=== PATIENT | female | born 2005 | race Two or more races ===

== ENCOUNTER 2024-12-08 13:55 | Emergency (ER) | payer MEDICAID, SELFPAY ==
[2024-12-08 14:01] VITALS: BP 92/57; PULSE 82; RESP 18; TEMP 36.8; O2SAT 94; O2SAT 97; BMI 17.9
--- NOTE | 2024-12-08 14:26 | EKG_ITS ---
[facility] Test Date: 2024-12-08 Pat Name: JESSIE ERAZO Department: Room: - Gender: Female Tankman: : 2005 Requested By: Guillermo Singh Order Number: [id number] Reading MD: Guillermo Singh Measurements Intervals [place] Rate: 79 P: 51 [place]: 149 QRS: 42 QRSD: 84 T: 5 QT: 380 QTc: 436 Interpretive Statements SINUS RHYTHM WITH SINUS ARRHYTHMIA No previous ECG available for comparison /store/S0/[id number]/ecg/[id number].pdf
--- NOTE | 2024-12-08 14:30 | XR_ITS ---
Examination: PA lateral chest 2 views TECHNIQUE: Upright PA lateral chest 2 views Exam date 9: December 08, 2024 1650 hours INDICATIONS: Injury to the lateral ribs today FINDINGS: Normal heart size No pneumothorax Clavicles ribs thoracic vertebral bodies appear intact IMPRESSION: No pneumothorax pulmonary contusion or hemothorax
--- NOTE | 2024-12-08 14:32 | PD.EDSYNC ---
ED Syncope RME/HPI General Chief Complaint: Syncope / Near Syncope Stated Complaint: HIT RIBS WITH BROOM THEN SYNCOPE EPISODE Time Seen by Provider: 12/08/24 14:13 Arrival date/time: 12/08/24 13:55 RME / HPI RME / HPI narrative: The patient is a 19-year-old female with significant past medical history of anxiety disorder presented to ED via EMS with chief complaint of syncope. The patient was improving her house, when she hit her left lower ribs with the broom. She reported that she had an injury to the same site about 2 years ago, and she never seeked any medical attention for that. She started feeling dizzy, and her caught her before she would pass out. She did not had any urinary or bowel incontinence during or after episodes, neither she had any tongue bite or abnormal body movements. She remembers a lot of people around her when she woke up. She reported that when she was previously getting blood draw, she had passed out. She has a sister who is a therapist, provides her counseling regarding anxiety disorder. She denied headache, SOB, abdominal pain, any changes in bowel or bladder habit, fever or chills, nausea or vomiting. Of note, she reported she has a baby of about 1 year, and she is breast-feeding her, and has not been eating or drinking properly for past couple of weeks. Related Data Allergies Allergy/AdvReac Type Severity Reaction Status Date / Time NKA* Allergy Uncoded 06/08/11 10:23 Review of Systems Review of Systems Systems Reviewed: All systems reviewed, normal except as documented ED Exam Narrative Physical exam: General: Young, cooperative lady, no acute distress, Alert and Oriented x 3 HEENT: Moist mucous membranes, oropharynx clear Neck: Supple, No masses, No JVD CVS: S1S2 Regular rate and rhythm, No murmurs, rubs or gallops Lungs: Clear to auscultation with no accessory use, no wheeze no rhonchi Chest: severe tenderness over left lower ribs Abd: Soft, NT/ND, +BS, no organomegaly Ext: No edema, warm and well perfused Skin: No rash Psych: Appropriate mood and affect Course Quality Measures none Orders Category Date Time Status Hydro Plant Site Manager STAT Care 12/08/24 14:22 Active EKG (ED ONLY) *Do not use* NOW Care 12/08/24 14:26 Completed Insert IV STAT Care 12/08/24 14:22 Active Orthostatic Vitals STAT Care 12/08/24 14:22 Active EKG (ED Only) Stat Exams 12/08/24 14:26 Draft XR abdomen 1V Stat Exams 12/08/24 17:35 Completed XR chest 2V Stat Exams 12/08/24 14:30 Taken CBC Stat Lab 12/08/24 15:35 Completed Comprehensive Metabolic Panel Stat Lab 12/08/24 15:35 Completed HCG Qualitative,Urine Stat Lab 12/08/24 15:40 Completed HCG,Qualitative Serum Stat Lab 12/08/24 15:35 Completed Magnesium Stat Lab 12/08/24 15:35 Completed Partial Thromboplastin Time Stat Lab 12/08/24 15:35 Completed Phosphorous Stat Lab 12/08/24 15:35 Completed Prothrombin Time with INR Stat Lab 12/08/24 15:35 Completed Troponin I Stat Lab 12/08/24 15:35 Completed Urinalysis Stat Lab 12/08/24 15:40 Completed Ketorolac Inj [Toradol Inj] Med 12/08/24 14:25 Discontinued 15 mg IVP X1 ONE Ketorolac Inj [Toradol Inj] Med 12/08/24 14:21 Discontinued 30 mg IVP X1 ONE Sodium Chloride 0.9% 500 ml [Ns] 500 ml Med 12/08/24 14:21 Discontinued IV 999 mls/hr Vital Signs Vital signs: Vital Signs Temperature 98.2 F 12/08/24 14:01 Pulse Rate 82 12/08/24 14:01 Respiratory Rate 18 12/08/24 14:01 Blood Pressure 92/57 L 12/08/24 14:01 Pulse Oximetry (%) 97 12/08/24 14:01 Oxygen Delivery Method Room Air 12/08/24 14:01 Syncope MDM Narrative MDM Narrative:: The patient is a 19-year-old female with significant past medical history of anxiety disorder presented to ED via EMS with chief complaint of syncope. The patient was improving her house, when she hit her left lower ribs with the broom. She reported that she had an injury to the same site about 2 years ago, and she never seeked any medical attention for that. She started feeling dizzy, and her caught her before she would pass out. She did not had any urinary or bowel incontinence during or after episodes, neither she had any tongue bite or abnormal body movements. She remembers a lot of people around her when she woke up. She reported that when she was previously getting blood draw, she had passed out. She has a sister who is a therapist, provides her counseling regarding anxiety disorder. She denied headache, SOB, abdominal pain, any changes in bowel or bladder habit, fever or chills, nausea or vomiting. Of note, she reported she has a baby of about 1 year, and she is breast-feeding her, and has not been eating or drinking properly for past couple of weeks. Initial vitals were BP 92/57, 82, RR 18, temperature 98.2, saturating 97% on room air. Orthostatic vitals were negative, but was taken after bolus of 500 cc IV normal saline. Labs revealed stable CBC, 13.4, chemistry panel with electrolytes stable, troponin less than 0.002, UA revealed 2+ urine ketones, EKG revealed sinus rhythm with sinus arrhythmia, chest x-ray and abdomen x ray revealed no cervical or thoracic ribs fracture, or hematoma, pulmonary contusion or pneumothorax. Patient data External records reviewed:: None Clinical information provided by:: patient Social determinants that could affect healthcare access:: none Patient has the following chronic illnesses:: See above How is presenting disease/condition affected by chronic disease/condition?: exacerbated by Evaluation data The following diagnostics were reviewed and interpreted by me:: lab results, radiology exam(s) and EKG tracing(s) Lab and/or radiology exams considered but not ordered:: None Interpretation Summary: See above Medications / Prescriptions Medications or Prescriptions considered but not ordered:: None Medication administrations:: Medication Administration History Discontinued Medications Sodium Chloride (Ns) 500 mls @ 999 mls/hr IV .Q31M ONE Stop: 12/08/24 14:51 Last Infusion: 12/08/24 15:24 Dose: Infused Documented By: Admin: 12/08/24 14:53 Dose: 999 mls/hr Documented By: EF Ketorolac Tromethamine (Ketorolac Inj 30 Mg/Ml Vial) 30 mg IVP X1 ONE Stop: 12/08/24 14:22 Last Admin: 12/08/24 15:01 Dose: Not Given Documented By: EF Non-Admin Reason: Cancelled by Provider Ketorolac Tromethamine (Ketorolac Inj 30 Mg/Ml Vial) 15 mg IVP X1 ONE Stop: 12/08/24 14:26 Last Admin: 12/08/24 14:54 Dose: 15 mg Documented By: EF See above Consultations Consultation(s) initiated? (list below): No Diagnosis Syncope Differential Diagnosis: syncope due to orthostatic hypotension, vasovagal syncope and dehydration Most likely diagnosis given after review of the tests above:: Syncope due to orthostatic hypotension 2/2 dehydration Admission Indicated Admission indicated?: not indicated Explain why admission is indicated or not indicated:: Vitals and labs including ekg stable and pain controlled. Admission Request Was there a request for admission?: No Disposition Plan Disposition Plan: Discharge Discharge Attestation Discharge Attestation: The patient and all family members were given an opportunity to ask questions and understood the discharge instructions. Discharge instructions specifically effects, indications for sooner follow up or return to the emergency department, and the expected course of current diagnosis. Patient condition: Stable Discharge Plan Plan Patient Disposition: HOME (Self Care) Prescriptions/Referrals Referrals: No Primary/Family,Physician [Primary Care Provider] - In 1 week Problem List Clinical Impression: Syncope due to orthostatic hypotension, Dehydration, Soft tissue injury of chest wall Patient/Caregiver Discharge Instructions Discharge Activity: activity as tolerated Education Materials: Dehydration, Orthostatic Hypotension Additional Instructions: You have been discharged by Dr. Singh with the following recommendations: lease follow-up with your PCP within 1 week of discharge You have been started on: -Ibuprofen 200 Mg up to 3 times a day as needed for pain, please take this medicine after food. -Recommended to increase caloric intake, and stick to morning breakfast, lunch, snacks and dinner, including adequate fluid intake. Continue taking all other medicines as prescribed -Recommended to return back to emergency department if your symptoms persists or worsens Print Language: Persian Stand Alone Forms: Jenna Award Info., Patient Portal Info Letter
[2024-12-08 14:43] VITALS: PULSE 77
[2024-12-08] MEDS: SODIUM CHLORIDE 0.9% 500 ML 500 ML 999 ML IV (14:53)
[2024-12-08] MEDS: KETOROLAC INJ 30 MG/ML VIAL 15 MG IVP (14:54)
[2024-12-08 15:44] VITALS: BP 83/50; BP 91/71; BP 95/43; PULSE 66; PULSE 70; PULSE 80
[2024-12-08 15:50] LABS: Collection Type, Urine Clean Catch
[2024-12-08 16:06] LABS: Basophils # (Auto) 0.1 Thou/mm3 (0.0-0.2); Basophils % (Auto) 1 % (0-2.5); Eosinophils % (Auto) 0 % (0-10); HCG,Qualitative Serum Negative; Hematocrit 36.4 % (36.0-46.0); Hemoglobin 12.5 g/dL (12.0-16.0); Immature Granulocytes % (Auto) 0 % (0-0); Immature Granulocytes Auto 0.02 Thou/mm3 (0.00-0.00); Lymphocytes # (Auto) 1.9 Thou/mm3 (1.0-4.8); Lymphocytes % (Auto) 26 % (10-50); Mean Corpuscular HGB Conc 34.3 g/dl (31.0-37.0); Mean Corpuscular Hemoglobin 28.6 pg (25.0-35.0); Mean Corpuscular Volume 83 fL (80-100); Monocytes # (Auto) 0.5 Thou/mm3 (0.0-0.8); Monocytes % (Auto) 7 % (0-12); Neutrophils % (Auto) 67 % (37-80); Nucleated Red Blood Cell % 0 /100 WBC (0); Platelet Count 239 Thou/mm3 (140-440); RDW Standard Deviation 41.8 fL (36.4-46.3); Red Blood Count 4.37 Miln/mm3 (4.00-5.20); White Blood Count 7.6 Thou/mm3 (4.5-11.0)
[2024-12-08 16:10] LABS: INR 1.2 (0.9-1.3); Partial Thromboplastin Time 27.1 Seconds (22.0-36.0); Prothrombin Time 13.4 Seconds (9.0-12.2)
[2024-12-08 16:13] LABS: Alanine Aminotransferase 14 U/L (10-49); Albumin, Serum 4.4 gm/dL (3.5-5.0); Albumin/Globulin Ratio 1.5 (1.2-2.2); Alkaline Phosphatase 55 U/L (46-116); Anion Gap 12 (7-16); Aspartate Amino Transferase 35 U/L (0-34); BUN/Creatinine Ratio 12 Ratio (12-20); Bilirubin,Total 0.7 mg/dL (0.3-1.2); Blood Urea Nitrogen 7 mg/dL (9-23); Calcium 8.8 mg/dL (8.3-10.6); Calcium (Corrected) 8.8 mg/dL (8.5-10.1); Carbon Dioxide 24.3 mMol/L (20.0-31.0); Chloride 106 mMol/L (98-107); Creatinine (Component) 0.6 mg/dL (0.6-1.3); Globulin 2.9 gm/dL (2.3-3.5); Glucose 76 mg/dL (74-106); Osmolality,Calculated 280 (275-295); Potassium 3.8 mMol/L (3.4-5.1); Sodium 142 mMol/L (136-145); Total Protein 7.3 gm/dL (5.7-8.2); Troponin I < 0.002 ng/mL (0.0-0.045); eGFR > 60 See Note
[2024-12-08 16:15] VITALS: BP 108/98; PULSE 61; RESP 18; TEMP 36.4; O2SAT 100
[2024-12-08 16:15] LABS: Bilirubin,Urine Negative (Negative); Blood,Urine Negative (Negative); Clarity,Urine Clear (Clear/Hazy); Color,Urine Lt-Yellow (Lt Yel-Yel); Glucose, Urine Negative (Negative); Ketones,Urine 2+ (Negative); Leukocyte Esterase,Urine Negative (Negative); Nitrite,Urine Negative (Negative); PH,Urine 6.5 (5.0-7.0); Protein,Urine Negative (Neg - Trace); RBC,Urine 2 /hpf (0-3); Specific Gravity,Urine 1.022 (1.001-1.035); Squamous Epithelial Cell,Urine 3 /hpf (0-5); WBC,Urine 2 /hpf (0-5)
[2024-12-08 16:18] LABS: HCG Qualitative,Urine Negative
--- NOTE | 2024-12-08 17:35 | XR_ITS ---
Examination: Abdomen AP single view Technique: AP portable supine abdomen, single view Exam date and time: December 08, 2024 1739 hours INDICATIONS: Onset abdominal pain today. FINDINGS: Nonobstructive bowel gas pattern. No free air. No renal or ureteral calculi Intact osseous structures IMPRESSION: Nonobstructive bowel gas pattern
[2024-12-08 18:22] VITALS: BP 108/82; PULSE 99; RESP 16; O2SAT 99
== END 2024-12-08 18:27 | disposition home or self-care (01) ==
PROVIDERS: Emergency Provider Student in an Organized Health Care Education/Training Program
DX: I95.1 Orthostatic hypotension (principal); E86.0 Dehydration; S29.9XXA Unspecified injury of thorax, initial encounter; F41.9 Anxiety disorder, unspecified; W22.8XXA Striking against or struck by other objects, initial encounter
CPT/HCPCS: 36415; 71046; 74018; 80053; 81001; 81025; 83735; 84100; 84484; 84703; 85025; 85610; 85730; 93005; 96360; 99284; J1885; J7040

== ENCOUNTER 2025-03-24 17:19 | Emergency (ER) | payer MEDICAID, SELFPAY ==
[2025-03-24 17:20] VITALS: BMI 18.1
[2025-03-24 18:19] VITALS: BP 109/69; PULSE 67; RESP 16; TEMP 36.9; O2SAT 97
--- NOTE | 2025-03-24 19:00 | XR_ITS ---
Examination: Complete OB ultrasound, less than 14 weeks, transabdominal Date and time of exam: March 24, 2025 1003 hrs. Indications: Vaginal bleeding with right lower abdominal pain today Technique: Obstetrical ultrasound images less than 14 weeks performed via transabdominal imaging Findings: Uterus 9.4 cm no uterine mass or intrauterine gestation Endometrial stripe 0.9 cm Ovaries obscured by bowel gas Impression: No uterine mass or intrauterine gestation
[2025-03-24 19:34] LABS: Basophils # (Auto) 0.1 Thou/mm3 (0.0-0.2); Basophils % (Auto) 1 % (0-2.5); Eosinophils # (Auto) 0.0 Thou/mm3 (0.0-0.5); Eosinophils % (Auto) 1 % (0-10); Hematocrit 35.5 % (36.0-46.0); Hemoglobin 12.1 g/dL (12.0-16.0); Immature Granulocytes Auto 0.02 Thou/mm3 (0.00-0.00); Lymphocytes # (Auto) 2.4 Thou/mm3 (1.0-4.8); Lymphocytes % (Auto) 38 % (10-50); Mean Corpuscular HGB Conc 34.1 g/dl (31.0-37.0); Mean Corpuscular Hemoglobin 29.5 pg (25.0-35.0); Mean Corpuscular Volume 87 fL (80-100); Monocytes # (Auto) 0.4 Thou/mm3 (0.0-0.8); Monocytes % (Auto) 6 % (0-12); Neutrophils # (Auto) 3.4 Thou/mm3 (1.8-7.7); Neutrophils % (Auto) 54 % (37-80); Nucleated Red Blood Cell # 0.00 Thou/mm3 (0.00-0.00); Nucleated Red Blood Cell % 0 /100 WBC (0); Platelet Count 280 Thou/mm3 (140-440); RDW Standard Deviation 39.9 fL (36.4-46.3); Red Blood Count 4.10 Miln/mm3 (4.00-5.20); White Blood Count 6.3 Thou/mm3 (4.5-11.0)
[2025-03-24 20:05] LABS: Collection Type, Urine Voided
[2025-03-24 20:19] LABS: Alanine Aminotransferase 11 U/L (10-49); Albumin, Serum 4.6 gm/dL (3.5-5.0); Albumin/Globulin Ratio 1.7 (1.2-2.2); Alkaline Phosphatase 55 U/L (46-116); Anion Gap 11 (7-16); Aspartate Amino Transferase 19 U/L (0-34); BUN/Creatinine Ratio 9 Ratio (12-20); Bilirubin,Total 0.6 mg/dL (0.3-1.2); Blood Urea Nitrogen 6 mg/dL (9-23); Calcium 9.6 mg/dL (8.3-10.6); Calcium (Corrected) 9.6 mg/dL (8.5-10.1); Carbon Dioxide 25.5 mMol/L (20.0-31.0); Chloride 105 mMol/L (98-107); Creatinine (Component) 0.7 mg/dL (0.6-1.3); Estimated Creatinine Clearance 90.9 mL/min (>60); Globulin 2.7 gm/dL (2.3-3.5); Glucose 76 mg/dL (74-106); Osmolality,Calculated 277 (275-295); Potassium 3.1 mMol/L (3.4-5.1); Sodium 141 mMol/L (136-145); Total Protein 7.3 gm/dL (5.7-8.2); eGFR > 60 See Note
[2025-03-24 20:27] LABS: Beta HCG,Quantitative 2920 mIU/mL (<5.0)
[2025-03-24 20:35] LABS: Amorphous Crystals,Urine Present (Absent); Bilirubin,Urine Negative (Negative); Blood,Urine Negative (Negative); Clarity,Urine Turbid (Clear/Hazy); Color,Urine Yellow (Lt Yel-Yel); Glucose, Urine Negative (Negative); Ketones,Urine Negative (Negative); Leukocyte Esterase,Urine Positive (Negative); Nitrite,Urine Negative (Negative); PH,Urine 6.0 (5.0-7.0); Protein,Urine Trace (Neg - Trace); RBC,Urine < 1 /hpf (0-3); Specific Gravity,Urine 1.027 (1.001-1.035); Squamous Epithelial Cell,Urine 4 /hpf (0-5); Urobilinogen,Urine Negative mg/dL (0.0-1.0); WBC,Urine 3 /hpf (0-5)
--- NOTE | 2025-03-25 00:19 | PD.EDVAGBL ---
ED OB Contraction Preg RMI/HPI General Chief complaint: Urogenital-Female Stated complaint: SPOTTING TODAY, + PREG Time Seen by Provider: 03/24/25 18:43 Arrival date/time: 03/24/25 17:19 This is a case of 19-year-old female who came in in the emergency room due to vaginal spotting today patient stated that she is 8 weeks she went to the checkup and was confirm that she is no blood test no ultrasound done yet patient is 2 para 1 have OB appointment on April 04, 2025 patient is fine until today noted to have vaginal spotting but resolved prior to arrival in the emergency room with mild pelvic cramping no other symptoms noted Limitations: no limitations Related Data Previous Rx's ?Medication ?Instructions ?Recorded ibuprofen 200 mg tablet 200 mg PO Q8H PRN pain #10 tabs 12/08/24 ondansetron HCl 4 mg tablet 4 mg PO Q8H PRN nausea and 12/08/24 vomiting #14 tabs nitrofurantoin 100 mg PO BID #20 caps 03/25/25 monohydrate/macrocrystals 100 mg capsule (Macrobid) Allergies Allergy/AdvReac Type Severity Reaction Status Date / Time latex Allergy Severe Hives Verified 03/24/25 17:23 Review of Systems Review of Systems Systems Reviewed: All systems reviewed, normal except as documented Constitutional Constitutional: Reports system reviewed and no additional complaints, except as documented and Reports as per HPI Cardiovascular Cardiovascular: Reports system reviewed and no additional complaints, except as documented and Reports as per HPI Respiratory Respiratory: Reports system reviewed and no additional complaints, except as documented and Reports as per HPI Gastrointestinal Gastrointestinal: Reports system reviewed and no additional complaints, except as documented and Reports as per HPI Genitourinary Genitourinary: Reports system reviewed and no additional complaints, except as documented and Reports as per HPI Neurologic Neurologic: Reports system reviewed and no additional complaints, except as documented and Reports as per HPI Past Medical History Past Medical History CARDIAC: Negative Congestive Heart Failure RESPIRATORY: Negative Chronic Obstructive Pulmonary Disease (COPD) GENITOURINARY: Negative Renal Disease ENDOCRINE: Negative Diabetes Mellitus Type 1 or Diabetes Mellitus Type 2 Social History SMOKING STATUS: Never smoker ED Exam General Limitations: Present no limitations General appearance: Present alert, in no apparent distress and other (Patient is awake alert oriented not in distress nontoxic looking well-hydrated well-nourished) Head Head exam: Present atraumatic, normocephalic and normal inspection Eye Eye exam: Present normal appearance, PERRL and EOMI ENT ENT exam: Present normal exam, normal oropharynx and mucous membranes moist Neck Neck exam: Present normal inspection, full ROM and trachea midline; Absent tenderness, meningismus, lymphadenopathy or thyromegaly Chest Chest inspection: Present normal inspection and symmetric chest wall rise; Absent tenderness Respiratory Respiratory exam: Present normal lung sounds bilaterally; Absent respiratory distress, wheezes, stridor, accessory muscle use or prolonged expiratory phase Cardiovascular Cardiovascular exam: Present regular rate, normal rhythm and normal heart sounds; Absent bradycardia, tachycardia, irregular rhythm, systolic murmur or diastolic murmur Abdominal Exam Abdominal exam: Present soft, normal bowel sounds and other (Gravid uterus); Absent distention, tenderness, guarding, rebound, rigidity, diminished bowel sounds, hyperactive bowel sounds, hypoactive bowel sounds, organomegaly, psoas sign, obturator sign, Grossman's sign, Rovsing's sign or tenderness at McBurney's Point Extremities Exam Extremities exam: Present normal inspection and full ROM Back Exam Back exam: Present normal inspection and full ROM Neurological Exam Neurological exam: Present alert, oriented X3, CN II-XII intact, normal gait and reflexes normal; Absent motor sensory deficit Psychiatric Psychiatric exam: Present normal affect and normal mood Skin Skin exam: Present warm, dry, intact and normal color Course Quality Measures none Orders Category Date Time Status US OB <= 14 weeks fetus Stat Exams 03/24/25 19:00 Completed ABO/RH Type Stat Lab 03/24/25 19:22 Completed Beta HCG,Quantitative Stat Lab 03/24/25 19:22 Completed CBC Stat Lab 03/24/25 19:22 Completed CMP [Comprehensive Metabolic Panel] Stat Lab 03/24/25 19:22 Completed Urinalysis Stat Lab 03/24/25 19:33 Completed Potassium Chloride [K-Dur] Med 03/24/25 22:39 Discontinued 40 meq PO X1 ONE Vital Signs Vital signs: Vital Signs Temperature 98.5 F 03/24/25 18:19 Pulse Rate 67 03/24/25 18:19 Respiratory Rate 16 03/24/25 18:19 Blood Pressure 109/69 03/24/25 18:19 Pulse Oximetry (%) 97 03/24/25 18:19 Oxygen Delivery Method Room Air 03/24/25 18:19 Oxygen saturation is 97% in room air Vaginal Bleeding MDM Narrative MDM Narrative: This is a case of 19-year-old female who came in in the emergency room due to vaginal spotting today patient stated that she is 8 weeks she went to the checkup and was confirm that she is no blood test no ultrasound done yet patient is 2 para 1 have OB appointment on April 04, 2025 patient is fine until today noted to have vaginal spotting but resolved prior to arrival in the emergency room with mild pelvic cramping no other symptoms noted physical examination patient is awake alert oriented not in distress nontoxic looking well-hydrated well-nourished no signs and symptoms of acute abdomen sepsis or dehydration abdominal exam is benign nonsurgical no guarding no rebound no rigidity no tenderness on the bladder negative psoas negative straight or negative Rovsing's negative McBurney's negative Grossman sign negative CVA tenderness gravid uterus the rest of the physical examination and neurological exam is normal and unremarkable blood test showed no leukocytosis no anemia patient is hypokalemic with potassium of 3.1 thus K-Dur was given 40 mEq x 1 patient will follow-up with PCP to monitor potassium level as outpatient liver and kidney function is normal patient is B+ patient beta-hCG [id number] patient urinalysis showed positive WBC in urine suggestive of urinary tract infection patient pelvic ultrasound showed no intrauterine at this point there is no baseline for patient beta-hCG thus I cannot totally rule out spontaneous incomplete ectopic or early she was advised to follow-up in 2 days for reevaluation for repeat beta-hCG and pelvic ultrasound the importance to see an OB e learning coordinator in 2 days for reevaluation and repeat test was also discussed patient will continue to take multivitamins and hydration patient was prescribed with Macrobid for urinary tract infection patient understood very well the discharge instruction for any worsening symptoms return precaution in the ER was advised Patient was discharged with comfortable condition walking with stable gait. Patient verbalized no further complains explained diagnosis and answered patient question. Patient is comfortable with the proposed management plan including the need to follow up with his/her primary care physician and any specialist if applicable Discussed patient for any urgent condition or worsening sx, He/She needed to go to emergency room immediately or call 911. Patient acknowledge the responsibility to follow up as instructed and to monitor her/his symptoms. For any persistence of the symptoms for more than 3-5 days return precaution advised. Discussed the result of the test and was given printed discharge instruction Patient data External records reviewed:: [facility] previous records Clinical information provided by:: patient Social determinants that could affect healthcare access:: none Patient has the following chronic illnesses:: None How is presenting disease/condition affected by chronic disease/condition?: no chronic disease Evaluation data The following diagnostics were reviewed and interpreted by me:: lab results and radiology exam(s) Lab and/or radiology exams considered but not ordered:: Reviewed Interpretation Summary: Reviewed Medications / Prescriptions Medications or Prescriptions considered but not ordered:: Given Medication administrations:: Medication Administration History Discontinued Medications Potassium Chloride (Potassium Chloride 20 Meq Tabcr) 40 meq PO X1 ONE Stop: 03/24/25 22:40 Last Admin: 03/24/25 23:21 Dose: 40 meq Documented By: CVL Given Consultations Consultation(s) initiated? (list below): No Diagnosis Vaginal Bleeding Differential Diagnosis: missed , threatened , dysfunctional uterine bleeding, incomplete , ectopic without intrauterine and vaginal bleeding Most likely diagnosis given after review of the tests above:: Abnormal vaginal bleeding possible Admission Indicated Admission indicated?: not indicated Explain why admission is indicated or not indicated:: Not indicated Admission Request Was there a request for admission?: No Admission Attestation Admission request attestation: Not indicated Disposition Plan Disposition Plan: Discharge Discharge Attestation Discharge Attestation: The patient and all family members were given an opportunity to ask questions and understood the discharge instructions. Discharge instructions specifically effects, indications for sooner follow up or return to the emergency department, and the expected course of current diagnosis. Patient condition: Stable Discharge Plan Plan Patient Disposition: HOME (Self Care) Patient condition on transfer: Stable Prescriptions/Referrals Prescriptions/Med Rec: New nitrofurantoin monohyd/m-cryst [Macrobid] 100 mg capsule 100 mg PO BID Qty: 20 0RF Rx Instructions: must administer with a meal/food No Action ibuprofen 200 mg tablet 200 mg PO Q8H PRN (Reason: pain) Qty: 10 0RF Rx Instructions: Please take this medicine after food. ondansetron HCl 4 mg tablet 4 mg PO Q8H PRN (Reason: nausea and vomiting) Qty: 14 0RF Referrals: Neno Ramirez MD [Primary Care Provider, Family Practice] - In 1 week Problem List Clinical Impression: Abnormal vaginal bleeding, Possible , Urinary tract infection, Hypokalemia Patient/Caregiver Discharge Instructions Education Materials: Urinary Tract Infections in Women, First Trimester, ED Dysfunctional Uterine Bleeding, ED Hypokalemia Additional Instructions: Follow-up with your primary care physician in 2 days for reevaluation and to see OB e learning coordinator for further evaluation and treatment of abnormal vaginal bleeding possible and to have repeat pelvic ultrasound and beta-hCG to confirm early versus ectopic versus incomplete versus spontaneous if not seen in 2 days return here in the emergency room for reevaluation and to have repeat pelvic ultrasound and beta-hCG Recurrence persistent worsening symptoms or any emergent concern call 911 or go to the nearest emergency room continue multivitamins keep hydrated increase water intake keep hydrated finish the course of antibiotic for your urinary tract infection It is very important to see OB e learning coordinator for your checkup Follow-up with your primary care physician to monitor your potassium level as an outpatient Print Language: Czech Stand Alone Forms: Jenna Award Info., Patient Portal Info Letter PA/[facility] Supervising Physician SEKOU/LEONEL Supervising Physician: Dr. Wise
[2025-03-25 00:24] VITALS: RESP 18
== END 2025-03-25 00:24 | disposition home or self-care (01) ==
PROVIDERS: Nurse Practitioner Family; Emergency Provider Emergency Medicine; PCP Family Medicine
DX: N93.9 Abnormal uterine and vaginal bleeding, unspecified (principal); N39.0 Urinary tract infection, site not specified; E87.6 Hypokalemia
CPT/HCPCS: 36415; 76801; 80053; 81001; 84702; 85025; 86900; 86901; 99283; A9270

== ENCOUNTER 2025-03-30 16:59 | Emergency (ER) | payer MEDICAID, SELFPAY ==
[2025-03-30 17:07] VITALS: BP 111/75; PULSE 68; RESP 19; TEMP 36.8; O2SAT 99; BMI 16.5
--- NOTE | 2025-03-30 17:47 | PD.EDRME ---
Rapid Medical Screening Exam RME Arrival date/time: 03/30/25 16:59 Chief Complaint: Vaginal Bleeding Time Seen by Provider: 03/30/25 17:43 Vital signs: Vital Signs Temperature 98.2 F 03/30/25 17:07 Pulse Rate 68 03/30/25 17:07 Respiratory Rate 19 03/30/25 17:07 Blood Pressure 111/75 03/30/25 17:07 Pulse Oximetry (%) 99 03/30/25 17:07 Oxygen Delivery Method Room Air 03/30/25 17:07 RME Narrative: 19-year-old female who came in in the emergency room due to vaginal spotting today was seen on 03/24/25 for same. Concerned was told no findings on US but hcg was 2920. States she looked up that is not normal.l [id number]. having cramping and more bleeding today
[2025-03-30 18:15] LABS: Collection Type, Urine Clean Catch
[2025-03-30 18:28] LABS: Bacteria,Urine Rare; Bilirubin,Urine Negative (Negative); Blood,Urine 2+ (Negative); Clarity,Urine Clear (Clear/Hazy); Color,Urine Yellow (Lt Yel-Yel); Glucose, Urine Negative (Negative); Ketones,Urine Negative (Negative); Leukocyte Esterase,Urine Negative (Negative); Nitrite,Urine Negative (Negative); PH,Urine 6.0 (5.0-7.0); Protein,Urine Trace (Neg - Trace); RBC,Urine 3 /hpf (0-3); Specific Gravity,Urine 1.026 (1.001-1.035); Squamous Epithelial Cell,Urine 1 /hpf (0-5); Urobilinogen,Urine Negative mg/dL (0.0-1.0); WBC,Urine 4 /hpf (0-5)
--- NOTE | 2025-03-30 18:41 | XR_ITS ---
Examination: OB Transvaginal ultrasound of the pelvis, complete Technique: Transvaginal sonographic images pelvis performed using alvares scale imaging Exam date and time: March 30, 2025 1843 hrs. Indications: Vaginal bleeding and pelvic pain beginning one week ago Findings: Uterus 6.0 cm intrauterine gestational sac 0.95 cm corresponds to 5 weeks 5 day gestational age. No pole, no cardiac activity Right ovary obscured by bowel gas Left ovary 2.6 cm arterial flow 15 mm cyst Impression: Empty intrauterine gestational sac corresponding to 5 weeks 5 day gestational age Recommend short-term follow-up transvaginal pelvic sonography to confirm viability.
[2025-03-30 19:55] LABS: Basophils # (Auto) 0.1 Thou/mm3 (0.0-0.2); Basophils % (Auto) 1 % (0-2.5); Eosinophils # (Auto) 0.1 Thou/mm3 (0.0-0.5); Eosinophils % (Auto) 1 % (0-10); Hematocrit 38.6 % (36.0-46.0); Hemoglobin 12.8 g/dL (12.0-16.0); Immature Granulocytes Auto 0.01 Thou/mm3 (0.00-0.00); Lymphocytes # (Auto) 3.0 Thou/mm3 (1.0-4.8); Lymphocytes % (Auto) 48 % (10-50); Mean Corpuscular HGB Conc 33.2 g/dl (31.0-37.0); Mean Corpuscular Hemoglobin 28.7 pg (25.0-35.0); Mean Corpuscular Volume 87 fL (80-100); Monocytes # (Auto) 0.5 Thou/mm3 (0.0-0.8); Monocytes % (Auto) 7 % (0-12); Neutrophils # (Auto) 2.7 Thou/mm3 (1.8-7.7); Neutrophils % (Auto) 43 % (37-80); Nucleated Red Blood Cell # 0.00 Thou/mm3 (0.00-0.00); Nucleated Red Blood Cell % 0 /100 WBC (0); Platelet Count 299 Thou/mm3 (140-440); RDW Standard Deviation 40.0 fL (36.4-46.3); Red Blood Count 4.46 Miln/mm3 (4.00-5.20); White Blood Count 6.2 Thou/mm3 (4.5-11.0)
[2025-03-30 20:12] LABS: Alanine Aminotransferase 12 U/L (10-49); Albumin, Serum 5.3 gm/dL (3.5-5.0); Albumin/Globulin Ratio 1.8 (1.2-2.2); Alkaline Phosphatase 60 U/L (46-116); Anion Gap 11 (7-16); Aspartate Amino Transferase 22 U/L (0-34); BUN/Creatinine Ratio 13 Ratio (12-20); Bilirubin,Total 0.8 mg/dL (0.3-1.2); Blood Urea Nitrogen 8 mg/dL (9-23); Calcium 10.3 mg/dL (8.3-10.6); Calcium (Corrected) 10.3 mg/dL (8.5-10.1); Carbon Dioxide 24.4 mMol/L (20.0-31.0); Chloride 105 mMol/L (98-107); Creatinine (Component) 0.6 mg/dL (0.6-1.3); Estimated Creatinine Clearance 103.1 mL/min (>60); Globulin 2.9 gm/dL (2.3-3.5); Glucose 88 mg/dL (74-106); Osmolality,Calculated 276 (275-295); Potassium 3.8 mMol/L (3.4-5.1); Sodium 140 mMol/L (136-145); Total Protein 8.2 gm/dL (5.7-8.2); eGFR > 60 See Note
[2025-03-30 20:35] LABS: Beta HCG,Quantitative 5487 mIU/mL (<5.0)
[2025-03-30 20:52] VITALS: BP 111/75; PULSE 72; RESP 19; TEMP 36.8; O2SAT 99
--- NOTE | 2025-03-30 21:11 | EDNOTE_ITS ---
ED OB Contraction Preg RMI/HPI General Chief complaint: Vaginal Bleeding Stated complaint: W/BLEEDING Time Seen by Provider: 03/30/25 17:43 Source: patient Arrival date/time: 03/30/25 16:59 Mode of arrival: ambulatory Limitations: no limitations RME / HPI RME / HPI Narrative: 19-year-old female who came in in the emergency room due to vaginal spotting tod luis miguel was seen on 03/24/25 for same. Concerned was told no findings on US but hcg was 2920. States she looked up that is not normal.l [id number]. having cramping and more bleeding today. Patient has having pain on the left pelvic area but the pain is only 4 a few seconds at a time and has occurred 4 times today. The patient has had 2 pads of bleeding over the last 24 hours. MD Complaint: vaginal bleeding and other (Left lower quadrant pain for few seconds at a time x 4 today.) Onset (ago): day(s) Consistency: intermittent Location: pelvis Severity: moderate Severity scale (1-10): 5 Quality: cramping Relieving factors: none Exacerbating factors: movement Associated symptoms: denies other symptoms Vaginal discharge: none Vaginal bleeding: light : yes Number of weeks : 8 OB History - Current : no complications OB History - Previous Pregnancies: no complications Last menstrual period: 02/04/25 care: none Related Data : 2 Para: 1 Ab: 0 Previous Rx's ?Medication ?Instructions ?Recorded ibuprofen 200 mg tablet 200 mg PO Q8H PRN pain #10 t abs 12/08/24 ondansetron HCl 4 mg tablet 4 mg PO Q8H PRN nausea and 12/08/24 vomiting #14 tabs nitrofurantoin 100 mg PO BID #20 caps 03/25 monohydrate/macrocrystals 100 mg capsule (Macrobid) Allergies Allergy/AdvReac Type Severity Reaction Status Date / Time latex Allergy Severe Hives Verified 03/30/25 17:03 Review of Systems Review of Systems Systems Reviewed: All systems reviewed, normal except as documented Past Medical History Past Medical History CARDIAC: Negative Congestive Heart Failure RESPIRATORY: Negative Chronic Obstructive Pulmonary Disease (COPD) GENITOURINARY: Negative Renal Disease ENDOCRINE: Negative Diabetes Mellitus Type 1 or Diabetes Mellitus Type 2 Social History SMOKING STATUS: Never smoker ED Exam General Limitations: Present no limitations General appearance: Present alert and in no apparent distress Head Head exam: Present atraumatic Eye Eye exam: Present normal appearance, PERRL and EOMI ENT ENT exam: Present normal exam, normal oropharynx and mucous membranes moist Neck Neck exam: Present normal inspection, full ROM and trachea midline Chest Chest inspection: Present normal inspection and symmetric chest wall rise Respiratory Respiratory exam: Present normal lung sounds bilaterally Cardiovascular Cardiovascular exam: Present regular rate, normal rhythm and normal heart sounds Abdominal Exam Abdominal exam: Present soft and normal bowel sounds Speculum exam: Present vaginal bleeding Bimanual exam: Present normal bimanual exam Extremities Exam Extremities exam: Present normal inspection and full ROM Back Exam Back exam: Present normal inspection and full ROM Neurological Exam Neurological exam: Present alert, oriented X3 and CN II-XII intact Psychiatric Psychiatric exam: Present normal affect and normal mood Skin Skin exam: Present warm, dry, intact and normal color Course Course Course Narrative: Patient is a 19-year-old female G2, P1 here for reevaluation last seen on 03/24/2025. Quality Measures none Orders Category Date Time Status US OB transvaginal Stat Exams 03/30/25 18:41 Completed ABO/RH Type - Stat Lab 03/30/25 19:30 Completed Beta HCG,Quantitative Stat Lab 03/30/25 19:30 Completed CBC Stat Lab 03/30/25 19:30 Completed CMP [Comprehensive Metabolic Panel] Stat Lab 03/30/25 19:30 Completed UA [Urinalysis] Stat Lab 03/30/25 18:00 Completed Vital Signs Vital signs: Vital Signs Temperature 98.2 F 03/30/25 17:07 Pulse Rate 68 03/30/25 17:07 Respiratory Rate 19 03/30/25 17:07 Blood Pressure 111/75 03/30/25 17:07 Pulse Oximetry (%) 99 03/30/25 17:07 Oxygen Delivery Method Room Air 03/30/25 17:07 Vaginal Bleeding Patient data External records reviewed:: None Clinical information provided by:: patient Social determinants that could affect healthcare access:: none Patient has the following chronic illnesses:: None How is presenting disease/condition affected by chronic disease/condition?: no chronic disease Evaluation data The following diagnostics were reviewed and interpreted by me:: lab results Lab and/or radiology exams considered but not ordered:: Quantitative beta-hCG on 03/24/2020 920 and today 5487. Ultrasound shows empty intrauterine sac by dates 5 weeks and 5 days (6 cm gestational sac). Right adnexa was not visualized. Interpretation Summary: As above Medications / Prescriptions Medications or Prescriptions considered but not ordered:: Hydrocodone Medication administrations:: None Consultations Consultation(s) initiated? (list below): No Diagnosis Vaginal Bleeding Differential Diagnosis: missed , threatened , incomplete , ectopic without intrauterine and vagin al bleeding Most likely diagnosis given after review of the tests above:: Vaginal bleeding, Admission Indicated Admission indicated?: not indicated Admission Request Was there a request for admission?: No Disposition Plan Disposition Plan: Discharge Discharge Attestation Discharge Attestation: The patient and all family members were given an opportunity to ask questions and understood the discharge instructions. Discharge instructions specifically effects, indications for sooner follow up or return to the emergency department, and the expected course of current diagnosis. Patient condition: Stable Discharge Plan Plan Patient Disposition: HOME (Self Care) Patient condition on transfer: Stable Prescriptions/Referrals Prescriptions/Med Rec: No Action ibuprofen 200 mg tablet 200 mg PO Q8H PRN (Reason: pain) Qty: 10 0RF Rx Instructions: Please take this medicine after food. ondansetron HCl 4 mg tablet 4 mg PO Q8H PRN (Reason: nausea and vomiting) Qty: 14 0RF nitrofurantoin monohyd/m-cryst [Macrobid] 100 mg capsule 100 mg PO BID Qty: 20 0RF Rx Instructions: must administer with a meal/food Referrals: No Primary/Family,Physician [Primary Care Provider] - In 1 week Problem List Clinical Impression: Possible , Abnormal vaginal bleeding Patient/Caregiver Discharge Instructions Additional Instructions: Return to the emergency department for increased bleeding or pain. Otherwise return to the ER in 2 days for repeat quantitative beta-hCG and ultrasound. You do have an appointment with your OB in 5 days and keep that appointment also as scheduled. Take Tylenol 500 mg 1 or 2 tabs p.o. every 6 hours for pain as needed. Your quantitative beta-hCG today is 5487 and on 03/24/2025 it was 2920. Print Language: Angolan Stand Alone Forms: [facility] Award Info., Patient Portal Info Letter
[2025-03-30 21:32] VITALS: BP 115/74; PULSE 78; RESP 18; TEMP 36.7; O2SAT 99
== END 2025-03-30 21:37 | disposition home or self-care (01) ==
PROVIDERS: Physician Assistant; Emergency Provider Family Medicine
DX: N93.9 Abnormal uterine and vaginal bleeding, unspecified (principal)
CPT/HCPCS: 36415; 76817; 80053; 81001; 84702; 85025; 86900; 86901; 99283

== ENCOUNTER 2025-03-31 12:04 | Emergency (ER) | payer MEDICAID, SELFPAY ==
--- NOTE | 2025-03-31 12:15 | PD.EDVAGBL ---
ED OB Contraction Preg RMI/HPI General Chief complaint: Vaginal Bleeding Stated complaint: VAGINAL BLEEDING; PREG Time Seen by Provider: 03/31/25 12:13 Arrival date/time: 03/31/25 12:04 RME / HPI RME / HPI Narrative: DR. LIZ MAIN ED EVALUATION: 19-year-old female who is 8 weeks with no past medical or surgical history presents with worsening vaginal bleeding and suprapubic cramping pain. She was seen in the ED yesterday for the same complaint. Reports using only one pad since the morning. Notices more bleeding when she urinates. She denies dysuria, hematuria, or foul-smelling urine. Patient is currently taking vitamins and has an [facility] appointment scheduled on the . She has an allergy to latex. Related Data Previous Rx's ?Medication ?Instructions ?Recorded ibuprofen 200 mg tablet 200 mg PO Q8H PRN pain #10 tabs 12/08/24 ondansetron HCl 4 mg tablet 4 mg PO Q8H PRN nausea and 12/08/24 vomiting #14 tabs nitrofurantoin 100 mg PO BID #20 caps 03/25/25 monohydrate/macrocrystals 100 mg capsule (Macrobid) Allergies Allergy/AdvReac Type Severity Reaction Status Date / Time latex Allergy Severe Hives Verified 03/31/25 12:07 Review of Systems Review of Systems Systems Reviewed: All systems reviewed, normal except as documented Past Medical History Social History SMOKING STATUS: Never smoker SUBSTANCE USE: does not use ALCOHOL: Never ED Exam Narrative Physical exam: GENERAL APPEARANCE: alert and oriented x 4, well-developed, well-nourished, no acute distress VITALS: All vitals were reviewed and the pulse ox is 100% on room air, which is normal according to my interpretation. HEENT: Normocephalic, atraumatic; pupils equal, round, reactive to light; EOMI; mucous membranes pink, moist; oropharynx clear NECK: Supple LUNGS: CTABL; no wheezes, no rales, no rhonchi HEART: Regular rate, regular rhythm; normal S1, S2; no murmurs ABDOMEN: non distended; normal BS; suprapubic tenderness without rebound or guarding; no masses, no organomegaly, no hernia BACK: no CVA tenderness EXTREMITIES: atraumatic; no edema NEUROLOGIC: awake; alert and oriented x4; cranial nerves II-XII grossly intact; no focal sensory or motor deficits PSYCHIATRIC: appropriate mood and affect SKIN: warm, dry, normal color; no rashes Course Quality Measures none Orders Category Date Time Status Beta HCG,Quantitative Stat Lab 03/31/25 12:39 Completed Vital Signs Vital signs: Vital Signs Temperature 98.2 F 03/31/25 12:43 Pulse Rate 68 03/31/25 12:43 Respiratory Rate 18 03/31/25 12:43 Blood Pressure 110/51 L 03/31/25 12:43 Pulse Oximetry (%) 100 03/31/25 12:43 Oxygen Delivery Method Room Air 03/31/25 12:43 Vaginal Bleeding MDM Narrative MDM Narrative: 19-year-old female who is 8 weeks with no past medical history presents with worsening vaginal bleeding and cramping, found to have downtrending beta hCG from 5487 yesterday to 4592 today; this is concerning for possible miscarriage versus early loss. Plan included trending hCG. Patient stable for discharge with outpatient follow-up with [facility], strict return precautions provided for worsening bleeding, abdominal pain, or syncope. Differential diagnosis: Threatened miscarriage vs. early loss/spontaneous vs. ectopic vs. dysfunctional uterine bleeding. Most likely diagnosis given after review of the tests above: Threatened Bridgette Higgins am scribing for and in the presence of Dr. Liz. Patient data External records reviewed:: [facility] previous records Clinical information provided by:: patient Social determinants that could affect healthcare access:: none Patient has the following chronic illnesses:: Denies any PMHx, surgeries, or daily medications besides the vitamins; allergy to latex. 8 weeks . How is presenting disease/condition affected by chronic disease/condition?: no chronic disease Evaluation data The following diagnostics were reviewed and interpreted by me:: lab results Lab and/or radiology exams considered but not ordered:: none Interpretation Summary: See MDM narrative above. Medications / Prescriptions Medications or Prescriptions considered but not ordered:: none Medication administrations:: see above if any Consultations Consultation(s) initiated? (list below): No Diagnosis Vaginal Bleeding Differential Diagnosis: other (Threatened miscarriage vs. early loss/spontaneous vs. ectopic vs. dysfunctional uterine bleeding.) Most likely diagnosis given after review of the tests above:: Threatened Admission Indicated Admission indicated?: not indicated Admission Request Was there a request for admission?: No Disposition Plan Disposition Plan: Discharge Discharge Attestation Discharge Attestation: The patient and all family members were given an opportunity to ask questions and understood the discharge instructions. Discharge instructions specifically effects, indications for sooner follow up or return to the emergency department, and the expected course of current diagnosis. Patient condition: Stable Discharge Plan Plan Patient Disposition: HOME (Self Care) Prescriptions/Referrals Prescriptions/Med Rec: No Action ibuprofen 200 mg tablet 200 mg PO Q8H PRN (Reason: pain) Qty: 10 0RF Rx Instructions: Please take this medicine after food. ondansetron HCl 4 mg tablet 4 mg PO Q8H PRN (Reason: nausea and vomiting) Qty: 14 0RF nitrofurantoin monohyd/m-cryst [Macrobid] 100 mg capsule 100 mg PO BID Qty: 20 0RF Rx Instructions: must administer with a meal/food Referrals: No Primary/Family,Physician [Referring Provider] - In 1 week Problem List Clinical Impression: Threatened Patient/Caregiver Discharge Instructions Education Materials: ED Possible Miscarriage ... Additional Instructions: Follow up with your doctor to repeat hormone levels (beta HCG) in 48 hours. Continue vitamins. 03/31/25 12:39 4592 mIU/mL 03/30/25 19:30 5487 mIU/mL 03/24/25 19:22 2920 mIU/mL Print Language: German Stand Alone Forms: Jenna Award Info., Patient Portal Info Letter
[2025-03-31 12:43] VITALS: BP 110/51; PULSE 68; RESP 18; TEMP 36.8; O2SAT 100
[2025-03-31 13:50] LABS: Beta HCG,Quantitative 4592 mIU/mL (<5.0)
== END 2025-03-31 14:57 | disposition home or self-care (01) ==
PROVIDERS: Emergency Provider Emergency Medicine; PCP Family Medicine
DX: O20.0 Threatened abortion (principal); Z3A.08 8 weeks gestation of pregnancy
CPT/HCPCS: 36415; 84702; 99282